=== PATIENT | male | born 1960 | race Hispanic/Latino ===

== ENCOUNTER 2025-07-19 05:44 | Observation (INO) | payer BC, MEDICARE ==
--- NOTE | 2025-07-15 10:14 | NUR ---
PREOP JANAY GUTIERREZ INSTRUCTED PT ON INCENTIVE SPIROMETRY
[2025-07-15 10:15] VITALS: BP 140/69; PULSE 73; RESP 14; TEMP 98.2
--- NOTE | 2025-07-15 12:06 | EKG ---
[facility] Test Date: 2025-07-15 Test Time: 09:55:47 Pat Name: LEE BROWN Department: [facility] Room: Gender: M Music Therapy Specialist: [id number] : 1960 Requested By: LAKSHMI LOZANO Order Number: [id number] Reading MD: Doroteo Knight Measurements Intervals Bude Rate: 67 P: 37 VT: 170 QRS: -27 QRSD: 91 T: 43 QT: 361 QTc: 382 Interpretive Statements Sinus rhythm Borderline ST elevation, anterior leads No previous ECG available for comparison Electronically Signed On 07-16-2025 12:24:40 CDT by Doroteo Knight Please click the below link to view image of tracing.
--- NOTE | 2025-07-15 16:43 | NUR ---
REPORT REPORTED EKG TO DR LUEVANO. OK TO PROCEED
[~2025-07-19] VITALS: Ht 165.1 cm; Wt 83.0 kg
[2025-07-19] VITALS (25 sets, daily range): BP systolic 115–176; BP diastolic 66–96; PULSE 63–90; RESP 14–18; TEMP 97.1–98.1; O2SAT 94–96
[~2025-07-19 05:44] MED LIST: IBUP-1492 PO; LISI10TA24 PO; MVI PO; TAMS-55 PO
[2025-07-19] MEDS ORDERED: SUGAMMADEX SODIUM 200 MG/2 ML VIAL IV ONE (06:39)
[2025-07-19] MEDS: LACTATED RINGERS 1000ML 1,000 ML IV ONE (06:47)
[2025-07-19] MEDS ORDERED: MIDAZOLAM HCL 1 MG/ML 2ML VIAL ONE (06:53)
[2025-07-19] MEDS ORDERED: 0.9%NACL 10ML VIAL ONE ×2 (06:54)
--- NOTE | 2025-07-19 07:27 | DS ---
Discharge Summary Hospital Course Summary: The patient was admitted to the hospital postoperatively on 07/19/2025 after undergoing right total knee arthroplasty. They did well with routine postoperative pain control. They worked well with physical therapy. They developed some acute blood loss anemia but remained asymptomatic. The hospital course was otherwise uncomplicated. They were subsequently able to be discharged on postoperative day [] once discharge arrangements were made with []. Director Of Corporate Responsibility(s): Non Procedure(s): Right total knee arthroplasty, 07/19/2025 Assessment/Plan: ASSESSMENT: Status post right total knee arthroplasty Acute blood loss anemia PLAN: See discharge instructions Home Medications: Reported Medications Tamsulosin HCl (Flomax) 0.4 Mg Cap.er.24h, 0.4 MG PO AM, CAPSULE.DR 07/15/25 Lisinopril (Lisinopril) 10 Mg Tablet, 10 MG PO AM, TAB 07/15/25 Ibuprofen (Ibuprofen) 600 Mg Tablet, 600 MG PO TID PRN for PAIN, TAB 07/15/25 [Mvi] No Conflict Check, 1 TAB PO DAILY 07/15/25 LAKSHMI LOZANO MD Jul 19, 2025 07:27
[2025-07-19] MEDS ORDERED: FERROUS FUMARATE 324 MG TABLET PO PRN (07:30)
[2025-07-19] MEDS ORDERED: CALCIUM CARB 500MG PO PRN (07:30)
[2025-07-19] MEDS: TRANEXAMIC ACID 1000MG/10ML ONE (07:36)
--- NOTE | 2025-07-19 09:44 | OP ---
Operative Note: DATE OF PROCEDURE: 07/19/25 PREOPERATIVE DIAGNOSIS: Right knee osteoarthritis. POSTOPERATIVE DIAGNOSIS: Right knee osteoarthritis. PROCEDURE PERFORMED: Right knee total knee arthroplasty. SURGEON: Nai Medrano MD CREDIT OPERATIONS SPECIALIST: Leo Kent. ANESTHESIA: General with adductor canal block. ANESTHESIA: SUSIE Patterson. ESTIMATED BLOOD LOSS: 50cc. COMPLICATIONS: None. DRAINS: None. SPECIMENS REMOVED: resected bone. Not sent to pathology. IMPLANTS: Patterson [employer] Nephew Journey II BCS size 5 Oxinium femur, size 4 tibial base plate, 32 mm patella, 13 mm polyethylene STATEMENT OF MEDICAL NECESSITY: The patient is a 65-year-old male who suffers from right knee osteoarthritis failing conservative management. After discussion of the risks, benefits, and alternatives with the patient, they voluntarily agreed to undergo the aforementioned procedure. DESCRIPTION OF PROCEDURE: Patient was properly identified in the preoperative holding area. Surgical site marking was verified and surgery consent reviewed. The patient was then taken to the operating room and placed in supine position on the OR table. After induction of general anesthesia, preoperative antibiotics were given, all bony prominences were well-padded, and a well padded tourniquet was applied but not inflated at this time. The right lower extremity was then prepped and draped in usual sterile fashion. Surgical time out was done verifying correct surgery, side, site, and location to be performed. We then began the procedure by exsanguinating the limb using an Esmarch and inflating the tourniquet to 350 mmHg. At this point, we made an anterior midline incision using a 10 blade, coming down sharply the level of the fascia. Skin flaps were elevated medially and laterally. We then obtained a clean 10 blade and performed a standard medial parapatellar arthrotomy. We excised the infrapatellar fat pad. We performed our soft tissue releases off of the tibia. We transected the ACL and removed the anterior portion of the medial & lateral meniscus. We then brought the knee into hyperflexion with the patella everted. We used our entry reamer to enter the femoral canal. We then placed our intramedullary cutting guide for our distal femoral cutting block. We then performed our distal femoral osteotomy ensuring appropriate rotation and removed the bony wafer. We then removed these pins and block and then used jig 2 to size the distal femur with the after mentioned size found. We then placed our 5-in-1 cutting block in 4 degrees of external rotation and took our 5 cuts ensuring to protect the patellar tendon and the collateral ligaments. We then removed the cutting block and our bony fragments using a curved osteotome. We then placed our PCL retractor subluxating the tibia anteriorly. Using an extra medullary tibial cutting guide, we hung the block for our proximal tibial cut taking 2 mm off the more diseased portion. Prior to pinning this block in place, we ensured appropriate varus/valgus alignment and posterior slope similar to the kasaan slope of the patient's knee. We then performed our proximal tibial osteotomy and removed the bony wafer using Bovie electrocautery to release any remaining soft tissue attachments. We then used our tibial sizing paddle and checked once more for varus & valgus alignment and found this to be appropriate. At this point, we pinned our tibial paddle in place. We then removed the PCL retractor and subluxated the tibia posteriorly while we placed our femoral trial component. We then finished preparing the notch with the reamer and box chisel. The notch portion of the trial femoral component was then placed. A posterior stabilized polyethylene, size 9 trial was placed. This was immediately increased up to a size 12 secondary to laxity with varus and valgus stressing. The knee was then taken through range of motion and found to have stable full range of motion. We then placed a bump under the ankle and everted the patella to perform our freehand cut of the undersurface the patella. We then sized our patella and reamed to the lug holes for this. We placed our trial patellar component and begin to take the knee through range of motion. The patella had appropriate tracking At this point we began removing our trial components and punched the tibial keel prior to removing our tibial trial component. Final components were opened and cement was mixed on the back table while we injected local cocktail in the posterior capsule. We then thoroughly irrigated out the bone and dried the bony surfaces. We cemented our tibial component in place ensuring to remove excess cement and placed our trial polyethylene. We then cemented our femoral component in place once again taking time to ensure excess cement was removed leg was brought into full extension to help squeeze the excess cement from around the femoral component. We then brought the knee back in a flexion to remove this portion of the cement at this point we placed the ankle in a bump thoroughly irrigated off the patellar component and cemented our patellar component in standard fashion again removing excess cement. While we waited for the cement to cure, we thoroughly irrigated out the wound with normal saline. Once our cement had cured, we took the knee through a range of motion and found full and stable range of motion. We then elected to use the size 13 polyethylene and removed our trial polyethylene. We impacted our final polyethylene component in place in standard fashion and took the knee through a range of motion check once more. This was satisfactory so we began to repair the arthrotomy using #1 Vicryl in interrupted [id number] fashion. Subcutaneous tissue was repaired using 2-0 Vicryl. Running subcuticular 3-0 Monocryl stitch with Dermabond placed over this for the skin. We then applied a foam barrier dressing and a pressure dressing consisting of 4 x 4's fluffs and an Jonathan wrap. The tourniquet was then deflated. Patient was awakened from anesthesia, and they were taken to the recovery room in stable condition. NAI MEDRANO MD Jul 19, 2025 09:44
--- NOTE | 2025-07-19 11:00 | NUR ---
PT arrived on unit A&Ox4 able to make needs known, denies pain or discomfort. Resp = & unlabored bilat. Abdomen soft, round, + bowel sounds x 4 quads. R leg wrapped in ml wrap to upper thigh. RLE cap refill 2 seconds. Educated PT on hospital environment, use of call light and bed remote. PT verbally acknowledged understanding.
[2025-07-19] MEDS: 0.9%NACL 1000ML 1,000 ML IV SCH (12:46)
[2025-07-19] MEDS: HYDROcodone/APAP 5/325 1 TAB TABLET PO PRN (16:47)
--- NOTE | 2025-07-19 18:57 | HMCIMG ---
CLINICAL INFORMATION Postop COMPARISON None. TECHNIQUE 2 view bilateral knee FINDINGS Bones: No acute fracture. No destructive osseous abnormality. Alignment: Normal. Joints: Interval postsurgical changes of total knee arthroplasty. Effusion: None Soft Tissues: Expected immediate postsurgical changes with soft tissue gas and swelling. IMPRESSION Expected immediate postsurgical changes of total knee arthroplasty. No acute bony findings. /[place]
[2025-07-20 03:51] VITALS: BP 137/88; PULSE 86; RESP 18; TEMP 97.5
[2025-07-20 04:12] LABS: NUCLEATED RED BLOOD CELLS 0.0 % (0.0-0.19); PLATELET COUNT (AUTO) 192.0 K/uL (130-400); RED BLOOD CELL COUNT(AUTO) 3.95 MIL/uL (4.50-6.20); RED CELL DISTRIBUTION WIDTH 13.2 % (11.0-15.5); WHITE BLOOD COUNT (AUTO) 9.5 K/uL (4.8-10.8)
[2025-07-20 04:30] LABS: CREATININE 0.8 mg/dL (0.5-1.3); GLOMERULAR FILTR. RATE CALC 97.0 mL/min (>90); GLUCOSE,RANDOM 106.0 mg/dL (70-105); SODIUM SERUM 137.0 mmol/L (136-145); UREA NITROGEN, BLOOD 12.0 mg/dL (7-18)
[2025-07-20 07:41] VITALS: O2SAT 93
[2025-07-20 08:13] VITALS: BP 144/73; PULSE 86; RESP 16; TEMP 98.5
--- NOTE | 2025-07-20 08:18 | PN ---
Ortho postop day one. This morning the patient is awake alert and oriented.The is at the bedside. He is not feeling too much pain at this time. Vital signs have remained stable. Afebrile. Laboratory results reviewed. Noted to have a drop in hemoglobin and hematocrit as expected. Patient is currently asymptomatic we will continue to observe and address per protocol as necessary. Operative findings discussed with the patient. Voiding on his own and passing gas. Reinforced incentive spirometry. Patient is seated alternating extension and flexion of the extremity. The Jonathan bandage has been removed dressing is intact. The gastrocnemius a soft nontender. Negative Homans. Pending physical therapy this morning Patient we would like to go home with a home health/PT. Assessment: Status post right TKA Acute postoperative blood loss anemia. Plan: Continue Dr. Medrano protocol and discharge planning. Acute postoperative blood loss anemia addressed with the protocol Vitals/Labs Vital Signs Date Time Temp Pulse Resp B/P (MAP) Pulse Ox O2 Delivery O2 Flow Rate FiO2 07/20/25 08:13 98.4 86 16 144/73 94 Room Air 07/20/25 07:41 0 21 Laboratory Tests 07/20/25 03:26 Medications Current Medications Cefazolin Sodium 2 gm STK-MED ONCE .ROUTE Last administered on 07/19/25at 07:35; Start 07/19/25 at 06:20; Stop 07/19/25 at 06:21; Status DC Lactated Ringer's 1,000 ml @ As Directed STK-MED ONCE IV Last administered on 07/19/25at 06:47; Start 07/19/25 at 06:20; Stop 07/19/25 at 06:21; Status DC Acetaminophen 100 ml @ As Directed STK-MED ONCE .ROUTE; Start 07/19/25 at 06:40; Stop 07/19/25 at 06:45; Status DC Hydromorphone HCl 1 mg STK-MED ONCE .ROUTE; Start 07/19/25 at 06:40; Stop 07/19/25 at 06:45; Status DC Ropivacaine 150 mg STK-MED ONCE .ROUTE; Start 07/19/25 at 06:42; Stop 07/19/25 at 06:45; Status DC Propofol 200 mg STK-MED ONCE IV; Start 07/19/25 at 06:53; Stop 07/19/25 at 06:53; Status DC Midazolam HCl 2 mg STK-MED ONCE .ROUTE; Start 07/19/25 at 06:53; Stop 07/19/25 at 06:53; Status DC Fentanyl Citrate 100 mcg STK-MED ONCE .ROUTE; Start 07/19/25 at 06:53; Stop 07/19/25 at 06:54; Status DC Sodium Chloride 10 ml STK-MED ONCE .ROUTE; Start 07/19/25 at 06:54; Stop 07/19/25 at 06:54; Status DC Sodium Chloride 10 ml STK-MED ONCE .ROUTE; Start 07/19/25 at 06:54; Stop 07/19/25 at 06:54; Status DC Phenylephrine HCl 10 mg STK-MED ONCE IV; Start 07/19/25 at 06:55; Stop 07/19/25 at 06:56; Status DC Rocuronium Lapel 50 mg STK-MED ONCE .ROUTE; Start 07/19/25 at 06:56; Stop 07/19/25 at 06:56; Status DC Cefazolin Sodium 2 gm STK-MED ONCE .ROUTE; Start 07/19/25 at 07:03; Stop 07/19/25 at 07:08; Status DC Tranexamic Acid 1,000 mg STK-MED ONCE .ROUTE Last administered on 07/19/25at 07:36; Start 07/19/25 at 07:09; Stop 07/19/25 at 07:09; Status DC Sodium Chloride 1,000 ml @ 100 mls/hr Q10H IV Last administered on 07/20/25at 03:54; Start 07/19/25 at 07:30; Stop 07/20/25 at 07:29; Status DC Polyethylene Glycol 17 gm DAILY PO; Start 07/19/25 at 09:00; Stop 08/18/25 at 08:59 Bisacodyl 10 mg DAILY PRN RC; Start 07/22/25 at 07:30; Stop 08/21/25 at 07:29 Ketorolac Tromethamine 15 mg Q6H PRN IV Last administered on 07/20/25at 06:48; Start 07/20/25 at 07:30; Stop 07/25/25 at 07:29 Ferrous Fumarate 324 mg DAILY PRN PO; Start 07/19/25 at 07:30; Stop 08/18/25 at 07:29 Ondansetron HCl 4 mg Q6H PRN IVP; Start 07/19/25 at 07:30; Stop 08/18/25 at 07:29 Calcium Carbonate 500 mg Q12H PRN PO; Start 07/19/25 at 07:30; Stop 08/18/25 at 07:29 Cefazolin Sodium 2 gm Q8H IVP Last administered on 07/19/25at 19:57; Start 07/19/25 at 12:30; Stop 07/19/25 at 20:31; Status DC Ketorolac Tromethamine 30 mg STK-MED ONCE .ROUTE Last administered on 07/19/25at 08:20; Start 07/19/25 at 07:29; Stop 07/19/25 at 07:29; Status DC Ropivacaine 150 mg STK-MED ONCE .ROUTE Last administered on 07/19/25at 08:19; Start 07/19/25 at 07:29; Stop 07/19/25 at 07:30; Status DC Dexamethasone Sodium Phosphate 10 mg STK-MED ONCE .ROUTE; Start 07/19/25 at 07:38; Stop 07/19/25 at 07:38; Status DC Fentanyl Citrate 100 mcg STK-MED ONCE .ROUTE; Start 07/19/25 at 08:03; Stop 07/19/25 at 08:03; Status DC Dexmedetomidine HCl 200 mcg STK-MED ONCE IV; Start 07/19/25 at 08:07; Stop 07/19/25 at 08:07; Status DC Rocuronium Lapel 50 mg STK-MED ONCE .ROUTE; Start 07/19/25 at 08:33; Stop 07/19/25 at 08:33; Status DC Hydralazine HCl 20 mg STK-MED ONCE .ROUTE; Start 07/19/25 at 09:24; Stop 07/19/25 at 09:25; Status DC Hydromorphone HCl 1 mg STK-MED ONCE .ROUTE Last administered on 07/19/25at 10:31; Start 07/19/25 at 10:28; Stop 07/19/25 at 10:28; Status DC Acetaminophen/ Hydrocodone Bitart 1 tab Q4H PRN PO Last administered on 07/20/25at 03:21; Start 07/19/25 at 16:30; Stop 07/24/25 at 16:29 Acetaminophen/ Hydrocodone Bitart 2 tab Q4H PRN PO; Start 07/19/25 at 16:30; Stop 07/24/25 at 16:29 SAM TA NP Jul 20, 2025 08:18
[2025-07-20] MEDS: HYDROcodone/APAP 5/325 1 TAB TABLET PO PRN (08:57)
[2025-07-20] MEDS ORDERED: CYCLOBENZAPRINE HCL 10 MG TABLET PO PRN (10:30)
--- NOTE | 2025-07-20 11:45 | NUR ---
[facility] CM MET WITH PT THIS MORNING, INITIAL ASSESSMENT DONE. PATIENT IS INDEPENDENT PRIOR TO SURGERY, LIVES AT HOME WITH HIS , SON LIVES WITH HIM AND HIS AT HOME. PATIENT HAS HIS OWN CURRENT WORKING STANDARD WALKER, CANE THAT HE BORROWED FROM FAMILY. DENIES ANY OTHER EQUIPMENT/SERVICES. FEELS SAFE TO GO BACK HOME, STILL DRIVE, SPOUSE ABLE TO ASSIST WITH TRANSPORTATION AND NEEDS NECESSARY. DISCUSSED MD RECOMMENDATIONS FOR HOME W/HOME HEALTH PT WILL NEED PT, PT AGREEABLE, CONSENT SIGNED YENNIFER FOR [facility]. [facility] W/ ONCE APPROVED. CM TO CONTINUE TO FOLLOW UP. Addendum: 07/20/25 at 1734 by SIMIN AVITIA LVN Amended: Links added.
[2025-07-20 11:49] VITALS: BP 138/73; PULSE 87; RESP 20; TEMP 98.7
[2025-07-20 16:25] VITALS: BP 121/56; PULSE 98; RESP 20; TEMP 99.9
[2025-07-20] MEDS ORDERED: GABA100C PO (16:47)
[2025-07-20] MEDS ORDERED: CYCL-309 PO (16:47)
[2025-07-20] MEDS ORDERED: HYDR-4060 PO (16:47)
[2025-07-20] MEDS ORDERED: ASPI-1012 PO (16:47)
[2025-07-20] MEDS ORDERED: DOCU-116 PO (16:47)
--- NOTE | 2025-07-20 18:15 | NUR ---
Discharge PT sitting in bed w/ eyes open, family @ bedside, 0 s/s of distress noted A&Ox4 able to make needs known. Discharge instructions given to PT. PT verbally acknowledged understanding. I.V. removed intact w/o complications. PT escorted to POV via WC by INFUSION PHARMACIST w/o complications.
[2025-07-21] MEDS ORDERED: LISINOPRIL 10 MG TABLET PO SCH (10:30)
== END 2025-07-20 18:15 | disposition home health service (06) ==
LOC: DAH 05:44 → DAHIP 05:45 → DAH 05:45 → 4AH 11:00
PROVIDERS: ADMIT Student in an Organized Health Care Education/Training Program; ATTEND Student in an Organized Health Care Education/Training Program
DX: M17.11 Unilateral primary osteoarthritis, right knee (principal); M24.561 Contracture, right knee; D62 Acute posthemorrhagic anemia; I10 Essential (primary) hypertension; N40.0 Benign prostatic hyperplasia without lower urinary tract symptoms; Z79.899 Other long term (current) drug therapy; Z98.890 Other specified postprocedural states
CPT/HCPCS: 82040; 84134; 86140; 36415 ×2; 93005; 87641; 27447; 96365; 96366; 64447; 73565; 97161; 97116 ×3; 96375; 80048; 85027; 97530 ×3; G0378 ×31; A4663; J7120; J3010 ×2; J1171 ×2; J3490 ×4; J1100; J0360; J2250; J2704; J1885 ×2; J2795 ×2; J2371; J0690 ×4; C1713 ×2; C1776 ×2; A4649 ×2; A4930 ×2; A6255; A5120; A4215; A4223 ×2; A4222; A4221; A4216; 73560